=== PATIENT | male | born 1985 | race Caucasian/White ===

== ENCOUNTER 2020-09-07 07:13 | Outpatient (REF) | payer OTHER, SELFPAY ==
--- NOTE | ~2020-09-07 | MR_ITS ---
EXAMINATION: MR SHOULDER WITHOUT CONTRAST, RIGHT CLINICAL INFORMATION: Right shoulder pain COMPARISON: None TECHNIQUE: MRI of the shoulder without contrast was performed on a high-field scanner. FINDINGS: ROTATOR CUFF: Intact. No muscle atrophy or fatty infiltration. BICEPS: Normal. CORACOACROMIAL ARCH: The undersurface of the acromion is curved with no subacromial spur. Mild acromioclavicular osteoarthritis. LABRUM/CAPSULE: No definite labral tear. GLENOHUMERAL JOINT/MARROW: Small degenerative cyst of the anterior superior glenoid and mild osteophyte formation along the posterior superior glenoid rim. No joint effusion. MR/MR shoulder RT wo con IMPRESSION: No rotator cuff tear. Mild glenohumeral and acromioclavicular osteoarthritis. No joint effusion.
== END 2020-09-07 07:14 | disposition home or self-care (01) ==
LOC: HO.MRI 07:13
PROVIDERS: PCP Nurse Practitioner Family; Visit Provider Nurse Practitioner Family
DX: M25.511 Pain in right shoulder (principal)
CPT/HCPCS: 73221

== ENCOUNTER 2020-10-05 09:11 | Outpatient (REF) | payer OTHER, SELFPAY ==
--- NOTE | ~2020-10-05 | XR_ITS ---
EXAMINATION: XR KNEE, LEFT CLINICAL INFORMATION: Injury COMPARISON: None TECHNIQUE: Four views of the left knee. FINDINGS: Bone alignment is normal. No fracture or dislocation is seen. The joint spaces are normal. There may be a joint effusion. XR/XR knee LT 4V IMPRESSION: Question joint effusion otherwise unremarkable exam.
== END 2020-10-05 09:12 | disposition home or self-care (01) ==
LOC: HO.HMGCX 09:11
PROVIDERS: PCP Nurse Practitioner Family; Visit Provider Nurse Practitioner Family
DX: S89.92XA Unspecified injury of left lower leg, initial encounter (principal)
CPT/HCPCS: 73564

== ENCOUNTER 2020-10-18 08:31 | Outpatient (REF) | payer OTHER, SELFPAY ==
--- NOTE | ~2020-10-18 | XR_ITS ---
EXAMINATION: XR LUMBOSACRAL SPINE CLINICAL INFORMATION: Pain COMPARISON: None TECHNIQUE: Three views of the lumbosacral spine. FINDINGS: Bone alignment is normal. No fracture or dislocation is seen. There is a convex margin of the superior endplate of the L4 vertebral body appreciated appreciated on the lateral view probably representing a small Schmorl's node. Disc spaces are otherwise normal. May be mild lower lumbar spine facet arthritis. Paraspinal soft tissues are normal. XR/XR lumbar spine 2-3V IMPRESSION: Probable small Schmorl's node of the superior endplate of the L4 vertebral body. Question mild lower lumbar spine facet arthritis.
== END 2020-10-18 08:32 | disposition home or self-care (01) ==
LOC: HO.HMGCX 08:31
PROVIDERS: PCP Nurse Practitioner Family; Visit Provider Nurse Practitioner Family
DX: M54.5 Low back pain (principal); G89.29 Other chronic pain
CPT/HCPCS: 72100

== ENCOUNTER → 2020-11-17 09:56 | Outpatient (BNVA) | payer OTHER, SELFPAY | PROVIDERS: PCP Nurse Practitioner Family; Visit Provider Hospitalist | DX: G47.33 Obstructive sleep apnea (adult) (pediatric) (principal); J45.40 Moderate persistent asthma, uncomplicated; F51.01 Primary insomnia | CPT/HCPCS: 99202 ==

== ENCOUNTER → 2020-12-01 14:54 | Outpatient (REF) | payer OTHER, SELFPAY | LOC: HO.SL 14:54 | PROVIDERS: PCP Nurse Practitioner Family; Visit Provider Hospitalist | DX: G47.33 Obstructive sleep apnea (adult) (pediatric) (principal); G47.10 Hypersomnia, unspecified | CPT/HCPCS: 95806 ==

== ENCOUNTER → 2021-01-16 09:59 | Outpatient (BNVA) | payer OTHER, SELFPAY | PROVIDERS: PCP Nurse Practitioner Family; Visit Provider Hospitalist | DX: G47.33 Obstructive sleep apnea (adult) (pediatric) (principal); J45.40 Moderate persistent asthma, uncomplicated; F51.01 Primary insomnia | CPT/HCPCS: 99212 ==

== ENCOUNTER 2021-07-31 13:03 | Outpatient (REF) | payer OTHER, SELFPAY ==
[2021-07-31 14:31] LABS: Alanine Aminotransferase 31 U/L (0-40); Albumin Level 4.5 g/dL (3.5-5.0); Alkaline Phosphatase 82 U/L (39-117); Anion Gap 12 (12-20); Aspartate Amino Transferase 18 U/L (5-37); Bilirubin Total 0.7 mg/dL (0.0-1.0); Blood Urea Nitrogen 12 mg/dL (9-16); Calcium 9.7 mg/dL (8.4-10.2); Carbon Dioxide 28 mmol/L (22-29); Chloride 104 mmol/L (96-108); Cholesterol 212 mg/dL; Estimated Glomerular Filt Rate > 60; Glucose Fasting 84 mg/dL (60-99); HDL Cholesterol 41 mg/dL; LDL Cholesterol Calculated 127 mg/dl; Potassium 4.2 mmol/L (3.3-5.1); Sodium 140 mmol/L (135-145); Total Protein 7.5 g/dL (6.5-8.0); Triglycerides 222 mg/dL
[2021-07-31 14:50] LABS: TSH reflex Free T4 1.48 uIU/mL (0.32-4.0)
[2021-08-04 15:51] LABS: Testosterone, Free 83.3 pg/mL (35.0-155.0); Testosterone, Total 350 ng/dL (250-1100)
== END 2021-07-31 13:04 | disposition home or self-care (01) ==
LOC: HO.HMGCLDS 13:03
PROVIDERS: Visit Provider Nurse Practitioner Family
DX: Z00.00 Encounter for general adult medical examination without abnormal findings (principal); N52.1 Erectile dysfunction due to diseases classified elsewhere
CPT/HCPCS: 36415; 80053; 80061; 84402; 84403; 84443

== ENCOUNTER 2021-09-25 13:52 | Outpatient (REF) | payer OTHER, SELFPAY ==
--- NOTE | ~2021-09-25 | XR_ITS ---
EXAMINATION: XR FOOT, RIGHT XR FOOT, LEFT CLINICAL INFORMATION: Bilateral foot pain. COMPARISON: None TECHNIQUE: 3 views of each foot. FINDINGS: LEFT FOOT: 3 views of the left foot do not demonstrate any evidence of acute fracture or dislocation. There is minimal sclerosis and spurring about the talonavicular joint. Remainder of joint spaces are maintained. There are minimal plantar and Achilles calcaneal spurs present. No significant soft tissue swelling seen. RIGHT FOOT: 3 views of the right foot do not demonstrate any evidence of acute fracture or dislocation. There is a prominent plantar calcaneal spur present. There is some mild sclerosis about the talonavicular joint. A metallic tack is seen about the medial aspect of the navicula. XR/XR foot RT 2V IMPRESSION: No evidence of acute fracture or dislocation of the right or left foot. Previous surgery with tack placement about the right medial navicular region. Mild degenerative change of the tarsonavicular joints bilaterally.
--- NOTE | ~2021-09-25 | XR_ITS ---
EXAMINATION: XR FOOT, RIGHT XR FOOT, LEFT CLINICAL INFORMATION: Bilateral foot pain. COMPARISON: None TECHNIQUE: 3 views of each foot. FINDINGS: LEFT FOOT: 3 views of the left foot do not demonstrate any evidence of acute fracture or dislocation. There is minimal sclerosis and spurring about the talonavicular joint. Remainder of joint spaces are maintained. There are minimal plantar and Achilles calcaneal spurs present. No significant soft tissue swelling seen. RIGHT FOOT: 3 views of the right foot do not demonstrate any evidence of acute fracture or dislocation. There is a prominent plantar calcaneal spur present. There is some mild sclerosis about the talonavicular joint. A metallic tack is seen about the medial aspect of the navicula. XR/XR foot LT 2V IMPRESSION: No evidence of acute fracture or dislocation of the right or left foot. Previous surgery with tack placement about the right medial navicular region. Mild degenerative change of the tarsonavicular joints bilaterally.
--- NOTE | ~2021-09-25 | US_ITS ---
EXAMINATION: US SCROTUM CLINICAL INFORMATION: Testicle swelling. COMPARISON: None TECHNIQUE: A sonogram of the scrotum was performed assessing reyes-scale appearance and color Doppler flow. Spectral Doppler analysis of the arterial and venous flow were performed in the testes bilaterally. FINDINGS: RIGHT: Right testicle measures 4.4 x 2.7 x 3.2 cm, volume 19.7 mL. No focal testicular parenchymal lesions are visualized. Spectral Doppler analysis of the arterial and venous flow is increased in the right testis. Right epididymal head is heterogeneous and enlarged. There is a complex right hydrocele with echogenic debris. No right varicocele is seen. Right epididymal Doppler flow is increased. LEFT: Left testicle measures 5.1 x 2.4 x 2.9 cm, volume 18.3 mL. No focal testicular parenchymal lesions are visualized. Spectral Doppler analysis of the arterial and venous flow is increased in the left testis. Left epididymal head is normal. There are echogenic areas in the left epididymal tail with swirling debris, question spermatocele. Moderate left hydrocele is present. Left epididymal Doppler flow is increased. US/US scrotum IMPRESSION: Bilateral moderate hydrocele with echogenic debris in the right hydrocele. Suspect left epididymal spermatocele in the tail region. Otherwise, the epidural head and testes are unremarkable with normal flow.
== END 2021-09-25 13:53 | disposition home or self-care (01) ==
LOC: HO.HMGCX 13:52
PROVIDERS: PCP Nurse Practitioner Family; Visit Provider Nurse Practitioner Family
DX: N50.89 Other specified disorders of the male genital organs (principal); M79.671 Pain in right foot; M79.672 Pain in left foot
CPT/HCPCS: 73620; 76870

== ENCOUNTER → 2022-01-10 11:53 | Outpatient (BNVA) | payer OTHER, SELFPAY | PROVIDERS: PCP Nurse Practitioner Family; Visit Provider Urology | DX: N43.3 Hydrocele, unspecified (principal) | CPT/HCPCS: 55000; 99202 ==

== ENCOUNTER 2022-01-25 14:14 | Outpatient (REF) | payer OTHER, SELFPAY ==
[2022-01-25 16:25] LABS: MANUAL DIFF FLAG NO
[2022-01-25 16:29] LABS: Basophils Percent Auto 0.5 % (0-2); Eosinophils Absolute Auto 0.2 X10*3/uL (0.0-0.4); Eosinophils Percent Auto 2.2 % (0-4); Hematocrit 46.1 % (42.0-52.0); Hemoglobin 15.9 g/dl (14.0-18.0); Imm Gran Abs Auto 0.03 X10*3/uL (0.00-0.03); Imm Gran Pct Auto 0.4 % (0.0-0.4); Lymphocytes Absolute Auto 2.3 X10*3/uL (1.2-4.9); Lymphocytes Percent Auto 29.2 % (20-40); Mean Corpuscular HGB Conc 34.5 g/dl (31.0-36.0); Mean Corpuscular Hemoglobin 30.2 pg (27.0-33.0); Mean Corpuscular Volume 87.6 fL (80.0-98.0); Monocytes Absolute Auto 0.7 X10*3/uL (0.1-1.2); Monocytes Percent Auto 9.1 % (2-11); Neutrophils Absolute Auto 4.6 x10*3/uL (2.0-8.3); Neutrophils Percent Auto 58.6 % (45-73); Platelet Count 321 X10*3/uL (160-400); Red Blood Count 5.26 X10*6/uL (4.60-5.80); Red Cell Distribution Width 12.6 % (11.0-16.0); White Blood Count 7.8 X10*3/uL (4.8-10.8)
[2022-01-25 16:37] LABS: Partial Thromboplastin Time 33.2 SEC (26.0-36.4)
[2022-01-25 16:39] LABS: Alanine Aminotransferase 64 U/L (0-40); Albumin Level 4.7 g/dL (3.5-5.0); Alkaline Phosphatase 87 U/L (39-117); Anion Gap 17 (12-20); Aspartate Amino Transferase 28 U/L (5-37); Bilirubin Total 0.5 mg/dL (0.0-1.0); Blood Urea Nitrogen 12 mg/dL (9-16); Calcium 9.8 mg/dL (8.4-10.2); Carbon Dioxide 27 mmol/L (22-29); Chloride 101 mmol/L (96-108); Estimated Glomerular Filt Rate > 60; Glucose Random 82 mg/dL (60-115); Potassium 4.5 mmol/L (3.3-5.1); Sodium 140 mmol/L (135-145); Total Protein 7.9 g/dL (6.5-8.0)
== END 2022-01-25 14:15 | disposition home or self-care (01) ==
LOC: HO.HMGCLDS 14:14
PROVIDERS: PCP Nurse Practitioner Family; Visit Provider Nurse Practitioner Family
DX: Z01.818 Encounter for other preprocedural examination (principal)
CPT/HCPCS: 36415; 80053; 84443; 85025; 85610; 85730

== ENCOUNTER 2022-01-29 11:58 | Day surgery (SDC) | payer OTHER, SELFPAY ==
[2022-01-23 15:04] VITALS: BMI 27.3
[2022-01-29] VITALS (7 sets, daily range): BP systolic 109–136; BP diastolic 61–84; PULSE 63–87; RESP 12–18; TEMP 36.3–37.1; O2SAT 95–97; BMI 27.3
[2022-01-29] MEDS: Lactated Ringers 1,000 ML 50 ML IVCONT (12:48)
--- NOTE | 2022-01-29 13:00 | HO.ANESPROP2 ---
[facility] Active Problems Active Problems: All Active Problems (Updated 01/25/22 @ 16:43 by JAN Bernstein) Elevated liver enzymes (Acute) Pre-op evaluation (Acute) Physical exam (Acute) Right shoulder pain (Acute) Erectile disorder due to medical condition in male (Acute) Sleep apnea (Acute) Knee injury (Acute) Hamstring injury (Acute) Knee effusion, left (Acute) Chronic lower back pain (Acute) Dyslipidemia (Acute) Foot pain, bilateral (Acute) Swollen testicle (Acute) Migraine (Acute) Allergies (Acute) Hydrocele in adult (Acute) Insomnia (Acute) Asthma (Acute) SB (obstructive sleep apnea) (Acute) Hypersomnia (Acute) Osteoarthritis of right shoulder (Acute) Past Medical History Medical History (Updated 01/25/22 @ 16:43 by JAN Bernstein) Arthritis of shoulder region, left, degenerative Asthma DDD (degenerative disc disease), lumbar History of seizure History of traumatic brain injury Hypersomnia Insomnia SB (obstructive sleep apnea) Osteoarthritis of right shoulder PTSD (post-traumatic stress disorder) Family History Family History Other Asthma Family history of problems with anesthesia: No Surgical History Surgical History History of shoulder surgery Hx of eye surgery Hx of vasectomy History of Problems with Anesthesia: No Social History Social History Household Members: Spouse Patient Tobacco Use Status: Current everyday Tobacco user Tobacco use type: Cigarette Cigarettes Per Day: 2 e-Cigarette/Vaping Use: Never Used Second Hand Smoke Exposure: No Use of substances other than those prescribed or required for medical reasons: No Have you been hit, kicked, punched, or otherwise hurt by someone within the past year? If so, by whom?: No Are you DNR?: No Advance Directives: No Advance Directives Information Provided: Yes Advance Directives on File: No Recently lost weight without trying: No Nutrition Risks: No Nutritional Risk service: Yes Current occupational status: employed Current occupation: [employer] Current occupational exposures/hazards: Yes Cognitive needs: No Hearing needs: No Vision needs: No Meds Allergies Allergy/AdvReac Type Severity Reaction Status Date / Time shellfish derived Allergy Severe Anaphylaxis Verified 01/25/22 17:49 Active Medications: Current Medications Lactated Ringer's (Lr) 1,000 mls @ 50 mls/hr IVCONT .Q20H SUZI Last Admin: 01/29/22 12:48 Dose: 50 mls/hr Home Medications Medication Instructions Recorded Confirmed Last Taken Type Epi E-Z Pen 01/23/22 01/25/22 Unknown History Exam Exam Date and Time: January 29, 2022 1300 Height,Weight and Vital Signs: Height 6 ft 4 in Weight 102.058 kg Last Vital Signs Temp 97.4 F 01/29/22 12:31 Pulse 76 01/29/22 12:31 Resp 18 01/29/22 12:31 BP 128/84 01/29/22 12:31 Pulse Ox 96 01/29/22 12:31 O2 Del Method 01/29/22 12:31 Airway Mallampati Class: II (Cap lower left) TM Dist: >3cm Neck ROM: Full Heart: rrr Lungs: cta Assessment and Plan Assessment Anesthesia Assessment: Anesthesia Plan Discussed and Chart Reviewed Final Anesthetic Review Family History of Problems with Anesthesia: No History of Problems with Anesthesia: No NPO: No ASA Class: III Final Preanesthetic Review: No Changes in Pt Med Stat, Meds/Allgs Chart Reviewed and Consent Obtained/Reviewed Patient Risk: Intermediate Procedure Risk: Intermediate Anesthetic Plan Anesthetic Plan: GA Disposition: Standard PACU
--- NOTE | 2022-01-29 14:36 | MHC.SHP ---
Pre-Procedural Eval Section A Date of Service: 01/29/22 The patient is an INPATIENT: No Changes since office visit: No Cold of Flu in the past 2 weeks, No New Medical Problems, No Changes in Medication and No Patient answered all questions The History & Physical has been completed within 30 days and I have reviewed it.: Yes Section B Chief Complaint: Hydrocele, Details of Present Illness: right hydrocelectomy Allergies: Allergies Allergy/AdvReac Type Severity Reaction Status Date / Time shellfish derived Allergy Severe Anaphylaxis Verified 01/25/22 17:49 Plan I have reviewed the history and physical and performed a pertinent physical examination on my patient. No changes have occurred unless specified.
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
== END 2022-01-29 17:15 | disposition home or self-care (01) ==
PROVIDERS: PCP Nurse Practitioner Family; Visit Provider Urology
PROC: (CPT 55060; principal; 2022-01-29 14:30)
DX: N43.3 Hydrocele, unspecified (principal); J45.909 Unspecified asthma, uncomplicated; G47.10 Hypersomnia, unspecified; G47.00 Insomnia, unspecified; G47.33 Obstructive sleep apnea (adult) (pediatric); Z79.899 Other long term (current) drug therapy; Z99.89 Dependence on other enabling machines and devices; F17.210 Nicotine dependence, cigarettes, uncomplicated; Z98.52 Vasectomy status
CPT/HCPCS: 55040; 88302; J0690; J1885; J2250; J2795; J3010

== ENCOUNTER 2022-03-01 10:54 | Outpatient (REF) | payer OTHER, SELFPAY ==
--- NOTE | ~2022-03-01 | US_ITS ---
EXAMINATION: US ABDOMEN COMPLETE CLINICAL INFORMATION: Abnormal levels of other serum enzymes. COMPARISON: None TECHNIQUE: Real-time imaging of the abdominal viscera. FINDINGS: PANCREAS: Normal. ABDOMINAL AORTA: The proximal, mid, and distal segments are normal in caliber. INFERIOR VENA CAVA: Visualized portions are normal. LIVER: Liver echotexture is increased. The liver is normal in contour. The liver is slightly enlarged. No focal liver lesion or biliary duct dilatation. GALLBLADDER: Normal. The gallbladder is physiologically distended without evidence of stones, sludge, polyps, wall thickening or pericholecystic fluid. COMMON BILE DUCT: Normal in caliber measuring 0.4 cm in diameter. RIGHT KIDNEY: Normal. No hydronephrosis. No renal calculi or focal parenchymal lesions. The kidney measures 13.8 cm in maximum dimension. LEFT KIDNEY: Normal. No hydronephrosis. No renal calculi or focal parenchymal lesions. The kidney measures 13.4 cm in maximum dimension. SPLEEN: Normal. The spleen measures 12.6 cm in maximum dimension. FREE FLUID: None. US/US abdomen complete IMPRESSION: Echogenic liver.
== END 2022-03-01 10:55 | disposition home or self-care (01) ==
LOC: HO.HMGCX 10:54
PROVIDERS: PCP Nurse Practitioner Family; Visit Provider Nurse Practitioner Family
DX: R74.8 Abnormal levels of other serum enzymes (principal)
CPT/HCPCS: 76700

== ENCOUNTER 2023-04-10 08:03 | Outpatient (AMB) | payer OTHER, SELFPAY ==
[2023-04-10 08:06] VITALS: BP 122/80; PULSE 74; TEMP 37.1; O2SAT 97; BMI 27.8
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
== END 2023-04-10 08:59 | disposition home or self-care (01) ==
PROVIDERS: PCP Nurse Practitioner Family; Visit Provider Internal Medicine
DX: S10.93XA Contusion of unspecified part of neck, initial encounter (principal)
CPT/HCPCS: 99214

== ENCOUNTER 2023-04-10 08:22 | Outpatient (REF) | payer OTHER, SELFPAY ==
--- NOTE | ~2023-04-10 | XR_ITS ---
EXAMINATION: XR CERVICAL SPINE CLINICAL INFORMATION: Contusion COMPARISON: None available. TECHNIQUE: 4 views of the cervical spine FINDINGS: The bony texture and alignment of the cervical spine is unremarkable with the head being tilted to the left on AP view. No abnormal prevertebral soft tissue swelling. Disc spaces are maintained. No acute fracture is appreciated. XR/XR cervical spine 3V IMPRESSION: No significant bony abnormality of the cervical spine identified.
== END 2023-04-10 08:23 | disposition home or self-care (01) ==
LOC: HO.HMGCX 08:22
PROVIDERS: Visit Provider Internal Medicine
DX: S10.93XA Contusion of unspecified part of neck, initial encounter (principal); X58.XXXA Exposure to other specified factors, initial encounter; Y93.9 Activity, unspecified; Y92.9 Unspecified place or not applicable; Y99.9 Unspecified external cause status
CPT/HCPCS: 72040

== ENCOUNTER 2023-08-15 09:52 | Outpatient (AMB) | payer OTHER, SELFPAY ==
[2023-08-15 09:56] VITALS: BP 126/88; PULSE 74; O2SAT 98; BMI 28.3
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
== END 2023-08-15 11:59 | disposition home or self-care (01) ==
PROVIDERS: PCP Nurse Practitioner Family; Visit Provider Nurse Practitioner Family
DX: M54.81 Occipital neuralgia (principal); M54.2 Cervicalgia; Z87.898 Personal history of other specified conditions; G51.4 Facial myokymia; R20.2 Paresthesia of skin; R51.9 Headache, unspecified
CPT/HCPCS: 99204

== ENCOUNTER → 2023-08-15 09:52 | Outpatient (BNVA) | payer OTHER, SELFPAY | PROVIDERS: PCP Nurse Practitioner Family; Visit Provider Nurse Practitioner Family | DX: M54.81 Occipital neuralgia (principal); M54.2 Cervicalgia; G51.4 Facial myokymia; R20.2 Paresthesia of skin; R51.9 Headache, unspecified; Z87.898 Personal history of other specified conditions | CPT/HCPCS: 99202 ==

== ENCOUNTER 2023-09-02 11:00 | Outpatient (RCR) | payer OTHER, SELFPAY ==
--- NOTE | 2023-06-12 13:56 | MHC.PT.EP ---
[facility] [place] Office [place] Office [place] Office [address] Nathen Sandhu [address] [phone] F: [phone] F: [phone] F: [phone] F: [phone] Physical Therapy Plan of Care Date of Evaluation: 06/12/23 Date of Surgery: Diagnosis: contusion of neck Assessment: Patient is a 38 year old R handed male who presents with s/s consistent with cervical pain, contusion of neck. He works with daily job demands including active for 19 years. Patient past medical history includes shoulder surgery. Current impairments include pain, posture, ROM, strength, tissue tension, activity tolerance and functional mobility. Functional limitations include decreased ability to turn head, drive, sleep, lift, carry, push, pull and perform extracurricular activities. Patient is motivated with good rehab potential. Skilled PT will address impairments and functional limitations in order to achieve goals. Frequency and Duration: The patient will be seen 2x/week for 5 weeks Short Term Goals: I with HEP - 2 weeks Improved sleep quality, max pain at night 07/13 - 3 weeks AROM rotation 50 b/l - 3 weeks Shelter Goals: AROM rotation 60 b/l - 5 weeks NPDI 20% or better - 5 weeks KUMAR absent for 2 weeks - 5 weeks Tissue tension absent - 5 weeks LS/UT TrP absent - 5 weeks Treatment Plan: Modalities to reduce pain, spasms and effusion. Manual therapy to restore motion and function. Therapeutic exercise to improve strength and flexibility. Neuromuscular re-education for posture and balance. Therapeutic activities to return to functional activities of daily living. Electronically signed by: Portillo Barnes, PT Please sign and return to therapist. Thank you for your referral.
--- NOTE | 2024-02-11 10:34 | MHC.PT.DC ---
[facility] [place] Office [place] Office [place] Office [address] [place] [address] Dr Nathen Sandhu [address] [phone] F: [phone] F: [phone] F: [phone] F: [phone] Physical Therapy Discharge Report Diagnosis: contusion of neck Date of Surgery: Date of Evaluation: 06/12/23 Date of Discharge: 10/14/23 Treatments to Date: 12 Cancellations to Date: 1 No Shows to Date: 3 Discharge Status: Independent with HEP Discharge Summary: 09/02/23: I with HEP. Improved sleep, reduced KUMAR and pain with daily activities. AROM goals met to L, 2 degrees away to R. Tissue tension significantly decreased. NPDI 28%. Pt compliant throughout and progressed well with skilled PT. He has HEP and will continue with this. He is appropriate to d/c to HEP at this time. 08/27; Pt gets relief from manual RX. Pt sebastián pain management. Pt conts with decreased c/s rot, KUMAR, pain ,stiffness and reduced c/s lordosis. 08/20; Pt felt looser after RX and had 10 degrees increased L c/s rot. Pt had no increase in pain after CTX. Discussed home TX unit for maintence if beneficial. 08/13;Pt fels ST relaxesd. Pt blocked C3,[address]X. 08/12/23: reduced tissue tension. ROM goals met. discussed plan, HEP, posture, pathology and half-way management with pt. we will continue 4 more weeks at 2x/week then transition to HEP. 08/06; Pt gets relief after RX. Pt rotation progressing. ; Pt L rot 55, R rot 60 after SNAG and mobs/ Pt hypomobile L C3,4. 07/24; Pt had reduced c/o stiffness, tightness and improved flexion. 07/17; Pt had reduced c/o pain and stiffness after RX. Pt mobility progressing. C3,4 hypomobile and L rotaed. Pt with significantly decreased cervical lordosis and noted muscle spasm L SCM. He tolerated all exercises well wit no increase in pain and updated HEP. Reviewed attendnace policy Electronically signed by: Portillo Barnes, PT Please sign and return to therapist. Thank you for your referral.
== END 2024-02-11 10:35 | disposition home or self-care (01) ==
LOC: HO.PTCHIC 11:00
PROVIDERS: PCP Nurse Practitioner Family; Visit Provider Internal Medicine
DX: S10.93XA Contusion of unspecified part of neck, initial encounter (principal)
CPT/HCPCS: 97110; 97140; 97161

== ENCOUNTER 2023-09-06 08:55 | Outpatient (AMB) | payer OTHER, SELFPAY ==
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
[2023-09-06 09:05] VITALS: BP 134/74; PULSE 72; O2SAT 100; BMI 28.6
== END 2023-09-06 09:37 | disposition home or self-care (01) ==
PROVIDERS: PCP Nurse Practitioner Family; Visit Provider Nurse Practitioner Family
DX: M54.81 Occipital neuralgia (principal); M47.812 Spondylosis without myelopathy or radiculopathy, cervical region; G43.909 Migraine, unspecified, not intractable, without status migrainosus; M62.838 Other muscle spasm
CPT/HCPCS: 99204

== ENCOUNTER 2023-09-06 08:55 | Outpatient (REF) | payer OTHER, SELFPAY ==
--- NOTE | ~2023-09-06 | XR_ITS ---
EXAMINATION: XR CERVICAL SPINE XR LUMBAR SPINE CLINICAL INFORMATION: Pain in spine of neck and lower spine. COMPARISON: Cervical spine 04/10/2023. Lumbar spine 10/18/2020. TECHNIQUE: 8 views of the cervical spine. 5 views of the lumbar spine. FINDINGS: Straightening of the normal cervical lordosis. Mild multilevel cervical spondylosis with slight loss of disc space height at C4-C5 and C5-C6. Alignment preserved on flexion and extension views. Lumbar spine: Mild rightward curvature of the lumbar spine. Degenerative changes in the imaged lower thoracic spine. Straightening of the normal lumbar lordosis on the lateral view. Redemonstration of a superior endplate concavity at the L4 vertebral bodies characteristic of a Schmorl's node. Facet arthritis in the lower lumbar spine. Mild multilevel lumbar spondylosis with mild loss of disc space height at L3-L4, L4-L5 and L5-S1. XR/XR lumbar spine 4V min IMPRESSION: 1. Mild multilevel cervical spondylosis. 2. Mild multilevel lumbar spondylosis.
--- NOTE | ~2023-09-06 | XR_ITS ---
EXAMINATION: XR CERVICAL SPINE XR LUMBAR SPINE CLINICAL INFORMATION: Pain in spine of neck and lower spine. COMPARISON: Cervical spine 04/10/2023. Lumbar spine 10/18/2020. TECHNIQUE: 8 views of the cervical spine. 5 views of the lumbar spine. FINDINGS: Straightening of the normal cervical lordosis. Mild multilevel cervical spondylosis with slight loss of disc space height at C4-C5 and C5-C6. Alignment preserved on flexion and extension views. Lumbar spine: Mild rightward curvature of the lumbar spine. Degenerative changes in the imaged lower thoracic spine. Straightening of the normal lumbar lordosis on the lateral view. Redemonstration of a superior endplate concavity at the L4 vertebral bodies characteristic of a Schmorl's node. Facet arthritis in the lower lumbar spine. Mild multilevel lumbar spondylosis with mild loss of disc space height at L3-L4, L4-L5 and L5-S1. XR/XR cervical spine w flex/ext IMPRESSION: 1. Mild multilevel cervical spondylosis. 2. Mild multilevel lumbar spondylosis.
== END 2023-09-06 08:56 | disposition home or self-care (01) ==
LOC: HO.XRAY 08:55
PROVIDERS: Absent Provider Nurse Practitioner Family; PCP Nurse Practitioner Family; Visit Provider Nurse Practitioner Family
DX: M54.81 Occipital neuralgia (principal); G43.909 Migraine, unspecified, not intractable, without status migrainosus; M62.838 Other muscle spasm; M47.812 Spondylosis without myelopathy or radiculopathy, cervical region; Z87.828 Personal history of other (healed) physical injury and trauma
CPT/HCPCS: 72052; 72110; 99202

== ENCOUNTER 2023-09-24 07:56 | Outpatient (REF) | payer OTHER, SELFPAY ==
--- NOTE | 2023-09-24 08:00 | EEG_ITS ---
FINDINGS: Waking background activity consists of a well-defined moderate voltage 10 hertz posterior alpha frequency intermixed anteriorly with low voltage fast frequencies. Photic stimulation and hyperventilation are without activation. No sleep stages are identified. IMPRESSION: This waking EEG is within normal limits MD BRIDGER Ovalle/MOISES / [id number]
== END 2023-09-24 07:57 | disposition home or self-care (01) ==
LOC: HO.NEURO 07:56
PROVIDERS: PCP Nurse Practitioner Family; Visit Provider Nurse Practitioner Family
DX: G51.4 Facial myokymia (principal); Z87.898 Personal history of other specified conditions; Z82.0 Family history of epilepsy and other diseases of the nervous system
CPT/HCPCS: 95816

== ENCOUNTER 2023-09-25 09:47 | Outpatient (AMB) | payer OTHER, SELFPAY ==
--- NOTE | 2023-09-25 10:01 | A.OFFVIS_ITS ---
Vital Signs 09/25/23 10:02 Height 6 ft 5 in Weight 238 lb BMI 28.2 BP 126/76 Blood Pressure Location Lt brachial Position Sitting Respiration 14 Pulse 66 Pulse Source Pulse Oximeter Pulse Oximetry (%) 97 Oxygen Delivery Method Room Air Intake Visit Reasons: BILATERAL OCCIPITAL NERVE BLOCKS Allergies shellfish derived Allergy (Severe, Verified 09/25/23 10:05) Anaphylaxis Medication List - Last Reconciled 09/25/23 by Janell Salinas LPN albuterol sulfate 90 mcg/actuation 2 inhalations inhalation Q6H PRN 30 days cyclobenzaprine 10 mg PO Q8H dextroamphetamine-amphetamine 10 mg (Adderall) 10 mg PO BID 14 days dextroamphetamine-amphetamine 20 mg (Adderall) 20 mg PO DAILY 14 days [Epi E-Z Pen ] gabapentin 300 mg PO BEDTIME 30 days magnesium oxide 400 mg PO BEDTIME 30 days meloxicam 15 mg PO DAILY riboflavin (vitamin B2) 400 mg PO DAILY 30 days sumatriptan succinate 50 - 100 mg orally at onset of headache, may repeat in 2 hrs PRN; max 2 tabs per day or 4 tabs/week (may take with Ibuprofen) 30 days topiramate 25 - 50 mg (1 - 2 x 25 mg) PO BEDTIME 30 days HPI HPI BILATERAL OCCIPITAL NERVE BLOCKS: Details: Patient presents for scheduled procedure. Denies any recent cough, cold, infection, fever or other significant changes in medical history since last office visit. [facility] Medical History (Updated 09/06/23 @ 20:46 by DELROY Fernandes) Migraine History of traumatic brain injury DDD (degenerative disc disease), lumbar History of seizure PTSD (post-traumatic stress disorder) Arthritis of shoulder region, left, degenerative Insomnia Asthma SB (obstructive sleep apnea) Hypersomnia Osteoarthritis of right shoulder Surgical History Hx of vasectomy Hx of eye surgery History of shoulder surgery Family History Other Asthma Social History Household Members: Spouse Patient Tobacco Use Status: Current everyday Tobacco user Tobacco use type: Cigarette Cigarettes Per Day: 2 e-Cigarette/Vaping Use: Never Used Second Hand Smoke Exposure: No service: Yes Current occupational status: employed Current occupation: [employer] Current occupational exposures/hazards: Yes Cognitive needs: No Hearing needs: No Vision needs: No Physical Exam Vital Signs: Last Vital Signs Pulse 66 09/25/23 10:02 Resp 14 09/25/23 10:02 BP 126/76 09/25/23 10:02 Pulse Ox 97 09/25/23 10:02 Oxygen Delivery Method Room Air 09/25/23 10:02 BMI result Body Mass Index 28.2 Office Procedures Nerve Block Details: Greater and Lesser Occipital Nerve Block, Bilateral Physical exam was used to isolate the location of the targeted nerves. These injection sites were prepped with alcohol. Using sterile technique, a 30 gauge 1.5 inch needle was introduced into each each overlying nerve. A total of 3 mL 0.5% ropivacaine was injected around the right greater and lesser occipital nerves in a fan-like motion. This was then repeated on the left side. Aspirations were negative for blood, CSF and air prior to injection at all sites. The needle was removed, skin cleansed and a sterile bandage was applied where needed. The patient tolerated the procedure well and no complications were encountered. Following the procedure the patient's vital signs were stable. The patient was discharged home in good condition with post-procedural instructions. Time Out: Immediately prior to the procedure, the following was verbally confirmed that there is a signed consent form and that the correct patient, planned procedure, site and side are consistent with documentation and that necessary equipment and/or blood products are available prior to the start of the case. Complications: none EBL: <5 cc CPT: 80515-[id number] Occipital (Bilateral) Procedure code (CPT) selection complete Assessment & Plan Assessment & Plan (1) Occipital neuralgia: Code(s): M54.81 - Occipital neuralgia Category: Medical Plan Patient is status post bilateral lesser and greater occipital nerve blocks using landmark guidance. Patient tolerated procedure well and was discharged home in stable condition with discharge instructions. All questions were answered. We will follow-up via telephone or in clinic to assess response to therapy. A follow-up appointment was made during today's visit. Coding Level of Care Code Procedure Only Diagnoses Occipital neuralgia M54.81 CPT Codes Nerve Block - CPT: 60346-[id number] Occipital ([id number])
[2023-09-25 10:02] VITALS: BP 126/76; PULSE 66; RESP 14; O2SAT 97; BMI 28.2
== END 2023-09-25 10:46 | disposition home or self-care (01) ==
PROVIDERS: PCP Nurse Practitioner Family; Visit Provider Internal Medicine
DX: M54.81 Occipital neuralgia (principal)
CPT/HCPCS: 64405; 64450

== ENCOUNTER → 2023-09-25 09:47 | Outpatient (BNVA) | payer OTHER, SELFPAY | PROVIDERS: PCP Nurse Practitioner Family; Visit Provider Internal Medicine | DX: M54.81 Occipital neuralgia (principal) | CPT/HCPCS: 64405; 64450; J2795 ==

== ENCOUNTER 2023-09-25 15:24 | Outpatient (REF) | payer OTHER, SELFPAY ==
--- NOTE | 2023-09-25 15:29 | EMG_ITS ---
Chief complaint: Tingling/numbness on fingertips, occasionally left foot Denies weakness. No atrophy. Has noted muscle twitching on face and arms. Neck pain. Low back pain. Isolated seizure 8 years ago. History of past TBI. Active [employer]. Reason for referral: Evaluate for motor neuron disorder, evaluate neuropathy Referred by: Sulma Woodward NP Procedure done: Bilateral upper extremities and bilateral lower extremity NCS/EMG Precautions and/or limitations: None The limb temperature was monitored continuously and remained between 32-36 degrees C during the performance of the NCS. Nerve Conduction Studies Anti Sensory Summary Table ?Stim Site NR Onset (ms) Norm Onset (ms) Peak (ms) Norm Peak (ms) O-P Amp (?V) Norm O-P Amp Site1 Site2 Delta-0 (ms) Dist (cm) Austin (m/s) Norm Austin (m/s) Left Median Anti Sensory (2nd Digit) Wrist ? 2.3 2.9 <3.6 47.4 >10 Wrist 2nd Digit 2.3 14.0 61 Right Median Anti Sensory (2nd Digit) Wrist ? 2.3 3.0 <3.6 43.5 >10 Wrist 2nd Digit 2.3 14.0 61 Left Sural Anti Sensory (Lat Mall) Calf ? 2.8 3.3 <4.0 12.6 >5.0 Calf Lat Mall 2.8 14.0 50 Right Sural Anti Sensory (Lat Mall) Calf ? 2.8 3.3 <4.0 8.9 >5.0 Calf Lat Mall 2.8 14.0 50 Left Ulnar Anti Sensory (5th Digit) Wrist ? 2.4 3.0 <3.7 31.9 >15.0 Wrist 5th Digit 2.4 14.0 58 Right Ulnar Anti Sensory (5th Digit) Wrist ? 2.2 2.8 <3.7 28.7 >15.0 Wrist 5th Digit 2.2 14.0 64 Motor Summary Table ?Stim Site NR Onset (ms) Norm Onset (ms) O-P Amp (mV) Norm O-P Amp iAmp (mV) Amp (1st) (%) Site1 Site2 Delta-0 (ms) Dist (cm) Austin (m/s) Norm Austin (m/s) Left Median Motor (Abd Poll Brev) Wrist ? 3.8 <3.9 10.3 >4.5 12.1 100.0 Elbow Wrist 4.1 23.0 56 >45 Elbow ? 7.9 10.4 12.3 101.0 Right Median Motor (Abd Poll Brev) Wrist ? 3.7 <3.9 10.5 >4.5 12.6 100.0 Elbow Wrist 4.0 22.0 55 >45 Elbow ? 7.7 10.5 12.9 100.0 Right Peroneal Motor (Ext Dig Brev) Ankle ? 3.5 <4.0 6.3 >2.5 7.7 100.0 Ankle Ext Dig Brev 3.5 0.0 B Fib ? 11.5 6.6 8.1 104.8 B Fib Ankle 8.0 36.0 45 >40 Poplt ? 12.7 6.1 7.7 96.8 Poplt B Fib 1.2 8.0 67 >40 Left Tibial Motor (Abd Mckinley Brev) Ankle ? 3.6 <5 12.9 >2.5 18.2 100.0 Ankle Abd Mckinley Brev 3.6 0.0 Knee ? 12.0 7.8 11.0 60.5 Knee Ankle 8.4 34.0 40 >40 Right Tibial Motor (Abd Mckinley Brev) Ankle ? 3.4 <5 13.4 >2.5 18.5 100.0 Ankle Abd Mckinley Brev 3.4 0.0 Knee ? 12.7 7.6 10.7 56.7 Knee Ankle 9.3 43.0 46 >40 Left Ulnar Motor (Abd Dig Minimi) Wrist ? 2.8 <3.0 6.9 >5 8.6 100.0 B Elbow Wrist 3.8 22.0 58 >45 B Elbow ? 6.6 6.7 8.5 97.1 A Elbow B Elbow 2.0 10.0 50 >45 A Elbow ? 8.6 6.7 8.5 97.1 Right Ulnar Motor (Abd Dig Minimi) Wrist ? 2.7 <3.0 10.7 >5 12.7 100.0 B Elbow Wrist 4.0 24.0 60 >45 B Elbow ? 6.7 9.9 12.0 92.5 A Elbow B Elbow 1.9 10.0 53 >45 A Elbow ? 8.6 9.5 11.6 88.8 EMG ?Side Muscle Nerve Root Ins Act Fibs Psw Amp Dur Poly Recrt Int Pat Comment Right 1stDorInt Ulnar C8-T1 Nml Nml Nml Nml Nml 0 Nml Complete Right FlexCarRad Median C6-7 Nml Nml Nml Nml Nml 0 Nml Complete Right Biceps Musculocut C5-6 Nml Nml Nml Nml Nml 0 Nml Complete Right Triceps Radial C6-7-8 Nml Nml Nml Nml Nml 0 Nml Complete Right Deltoid Axillary C5-6 Nml Nml Nml Nml Nml 0 Nml Complete Left 1stDorInt Ulnar C8-T1 Nml Nml Nml Nml Nml 0 Nml Complete Left FlexCarRad Median C6-7 Nml Nml Nml Nml Nml 0 Nml Complete Left Biceps Musculocut C5-6 Nml Nml Nml Nml Nml 0 Nml Complete Left Triceps Radial C6-7-8 Nml Nml Nml Nml Nml 0 Nml Complete Left Deltoid Axillary C5-6 Nml Nml Nml Nml Nml 0 Nml Complete Right AbdHallucis MedPlantar S1-2 Nml Nml Nml Nml Nml 0 Nml Complete Right AntTibialis Dp Br Peron L4-5 Nml Nml Nml Nml Nml 0 Nml Complete Right PostTibialis Tibial L5, S1 Nml Nml Nml Nml Nml 0 Nml Complete Right MedGastroc Tibial S1-2 Nml Nml Nml Nml Nml 0 Nml Complete Right VastusMed Femoral L2-4 Nml Nml Nml Nml Nml 0 Nml Complete Left AbdHallucis MedPlantar S1-2 Nml Nml Nml Nml Nml 0 Nml Complete Left AntTibialis Dp Br Peron L4-5 Nml Nml Nml Nml Nml 0 Nml Complete Left PostTibialis Tibial L5, S1 Nml Nml Nml Nml Nml 0 Nml Complete Left MedGastroc Tibial S1-2 Nml Nml Nml Nml Nml 0 Nml Complete Left VastusMed Femoral L2-4 Nml Nml Nml Nml Nml 0 Nml Complete Paraspinal EMG ?Side Muscle Nerve Root Ins Act Fibs Psw Comment Right Cervical Upper Rami Nml Nml Nml Right Cervical Mid Rami Nml Nml Nml Right Cervical Lower Rami Nml Nml Nml Left Cervical Upper Rami Nml Nml Nml Left Cervical Mid Rami Nml Nml Nml Left Cervical Lower Rami Nml Nml Nml Right Lumbar Upper Rami Nml Nml Nml Right Lumbar Mid Rami Nml Nml Nml Right Lumbar Lower Rami Nml Nml Nml Left Lumbar Upper Rami Nml Nml Nml Left Lumbar Mid Rami Nml Nml Nml Left Lumbar Lower Rami Nml Nml Nml FINDINGS: All motor and sensory nerves tested showed normal latencies, amplitudes and conduction velocities. Concentric needle EMG was performed in selected muscles of the bilateral upper extremities, bilateral lower extremity, cervical paraspinals, lumbar paraspinals. Study did not reveal signs of electric abnormalities as shown in the table below. No fasciculation seen. IMPRESSION: 1. This is a normal study. 2. There is no electrodiagnostic evidence for median neuropathy, ulnar neuropathy, brachial plexopathy, or cervical radiculopathy. 3. There is no electrodiagnostic evidence for peroneal neuropathy, tibial neuropathy, lumbosacral plexopathy, lumbar radiculopathy, or peripheral neuropathy. 4. No electrodiagnostic evidence for motor neuron disorder. Thank you for your kind referral. Jerica Tai MD, PAGE Board Certified, [place] [employer] and [employer] (ABPMR) Board Certified, [place] Board of Electrodiagnostic Medicine (ABEM) CODIN 63122 x 4 MTDD
== END 2023-09-25 15:25 | disposition home or self-care (01) ==
LOC: HO.NEURO 15:24
PROVIDERS: PCP Nurse Practitioner Family; Visit Provider Nurse Practitioner Family
DX: R20.2 Paresthesia of skin (principal); M54.81 Occipital neuralgia; M54.2 Cervicalgia
CPT/HCPCS: 95886; 95913

== ENCOUNTER → 2023-09-25 15:29 | Outpatient (BNV) | payer OTHER, SELFPAY | PROVIDERS: PCP Nurse Practitioner Family; Visit Provider Physical Medicine & Rehabilitation | DX: M79.604 Pain in right leg (principal); M79.605 Pain in left leg; M79.601 Pain in right arm; M79.602 Pain in left arm | CPT/HCPCS: 95886; 95913 ==

== ENCOUNTER 2023-10-02 09:38 | Outpatient (AMB) | payer OTHER, SELFPAY ==
--- NOTE | 2023-10-02 09:41 | MHC.OFFVIS ---
Vital Signs 10/02/23 09:42 Height 6 ft 5 in Weight 241 lb BMI 28.6 BP 128/81 Blood Pressure Location Lt brachial Position Sitting Respiration 14 Pulse 71 Pulse Source Pulse Oximeter Pulse Oximetry (%) 96 Oxygen Delivery Method Room Air Intake Visit Reasons: FOLLOW UP AFTER INJECTION Allergies shellfish derived Allergy (Severe, Verified 10/02/23 09:44) Anaphylaxis Medication List - Last Reconciled 10/02/23 by Janell Salinas LPN albuterol sulfate 90 mcg/actuation 2 inhalations inhalation Q6H PRN 30 days cyclobenzaprine 10 mg PO Q8H dextroamphetamine-amphetamine 10 mg (Adderall) 10 mg PO BID 14 days dextroamphetamine-amphetamine 20 mg (Adderall) 20 mg PO DAILY 14 days [Epi E-Z Pen ] gabapentin 300 mg PO BEDTIME 30 days magnesium oxide 400 mg PO BEDTIME 30 days meloxicam 15 mg PO DAILY riboflavin (vitamin B2) 400 mg PO DAILY 30 days sumatriptan succinate 50 - 100 mg orally at onset of headache, may repeat in 2 hrs PRN; max 2 tabs per day or 4 tabs/week (may take with Ibuprofen) 30 days topiramate 25 - 50 mg (1 - 2 x 25 mg) PO BEDTIME 30 days HPI HPI FOLLOW UP AFTER INJECTION: Details: 38-year-old male who presents today to the office for follow up after injection. He was initially very sore after the injection for 2-3 days but then felt that his headache frequency subsequently decreased. He complains of severe headaches, with usual frequency of 3-5 episodes a week. He was put on Topiramate and Topamax to help with the headaches, which he thinks has made some difference in the intensity. He describes the headaches as something that is deeper in his neck with pressure like sensation. He also gets photosensitivity when he experiences the headaches. He is not able to sleep because of the severity of headaches. He sometimes feels nauseated with severe headaches episodes. He has tried Excedrin for the migraines, which helps him for a few hours. He has not tried Sumatriptan, which was prescribed in the past. He has not maintained any diary for the headache frequency. He is scheduled to see the neurologist next week for the migraine headaches. He also reports lower back pain and back muscle tightness. He mentions a few times while sitting in a chair, where he could not get up. He has tried physical therapy with minimal benefit. He reports pain with bending sideways, forward and backward. Past Procedures: 09/25/23: Bilateral occipital nerve blocks: Decreased headache frequency [facility] Medical History (Updated 10/04/23 @ 09:37 by Kj Mcfadden MD) Migraine History of traumatic brain injury DDD (degenerative disc disease), lumbar History of seizure PTSD (post-traumatic stress disorder) Arthritis of shoulder region, left, degenerative Insomnia Asthma SB (obstructive sleep apnea) Hypersomnia Osteoarthritis of right shoulder Surgical History Hx of vasectomy Hx of eye surgery History of shoulder surgery Family History Other Asthma Social History Household Members: Spouse Patient Tobacco Use Status: Current everyday Tobacco user Tobacco use type: Cigarette Cigarettes Per Day: 2 e-Cigarette/Vaping Use: Never Used Second Hand Smoke Exposure: No service: Yes Current occupational status: employed Current occupation: [employer] Current occupational exposures/hazards: Yes Cognitive needs: No Hearing needs: No Vision needs: No Review of Systems Const All systems reviewed & are unremarkable except as noted in HPI and below Physical Exam Vital Signs: Last Vital Signs Pulse 71 10/02/23 09:42 Resp 14 10/02/23 09:42 BP 128/81 10/02/23 09:42 Pulse Ox 96 10/02/23 09:42 Oxygen Delivery Method Room Air 10/02/23 09:42 BMI result Body Mass Index 28.6 General: Appears afebrile. Alert and oriented. Mood and affect appropriate. Follows and participates in conversation appropriately. Respiratory effort is unlabored. Able to transition from sit to stand unassisted. Cervical extension is very limited. He is unable to extend his neck. Attempting cervical facet loading reproduces discomfort and pain. Results Reviewed Results Reviewed: 09/06/23: XR CERVICAL SPINE XR LUMBAR SPINE FINDINGS: Straightening of the normal cervical lordosis. Mild multilevel cervical spondylosis with slight loss of disc space height at C4-C5 and C5-C6. Alignment preserved on flexion and extension views. Lumbar spine: Mild rightward curvature of the lumbar spine. Degenerative changes in the imaged lower thoracic spine. Straightening of the normal lumbar lordosis on the lateral view. Redemonstration of a superior endplate concavity at the L4 vertebral bodies characteristic of a Schmorl's node. Facet arthritis in the lower lumbar spine. Mild multilevel lumbar spondylosis with mild loss of disc space height at L3-L4, L4-L5 and L5-S1. IMPRESSION: 1. Mild multilevel cervical spondylosis. 2. Mild multilevel lumbar spondylosis. Assessment & Plan Assessment & Plan (1) Muscle spasms of neck: Code(s): M62.838 - Other muscle spasm Category: Medical (2) Migraine: Code(s): G43.909 - Migraine, unspecified, not intractable, without status migrainosus Category: Medical (3) Cervical spondylosis: Code(s): M47.812 - Spondylosis without myelopathy or radiculopathy, cervical region Category: Medical (4) Lumbar spondylosis: Code(s): M47.816 - Spondylosis without myelopathy or radiculopathy, lumbar region Category: Medical Plan Discussed multiple modalities for symptomatic control of cervical and lumbar spondylosis related symptoms including acupuncture, massage therapy, swimming and home traction devices, including cervical traction pillows and inversion table for low back pain. I also discussed peripheral nerve stimulation for cervical and lumbar medial branches to help with the spondylotic symptoms. He also has L4 superior endplate deformity likely indicating vertebral endplate changes that would be best seen on an MRI. He may be a candidate for Intracept procedure in the future, but unfortunately, he is moving to [place] in December 2023, so we may not have enough time to undertake that prior to his move. In the meanwhile, for his cervical spondylosis, we will proceed with diagnostic C3, C4, C5 medial branch blocks, 2 rounds with one week apart, followed by potential radiofrequency ablation on both sides to help with facet related symptoms and hopefully relieve some of the muscle spasms that he is getting. Discussed the risks and benefits of the procedure with the patient in detail. All questions were answered. The patient is on board with the plan. With respect to his migraines, encouraged him to follow-up with Neurology to discuss his candidacy for different preventative and abortive treatment options available today. It appears the only thing he has tried so far as topiramate. I also counseled the patient not to combine multiple Excedrin pills at the same time to help with his headaches. He has a prior history of elevated liver enzymes and this may be secondary to acetaminophen toxicity. Justification for interventional therapy: ? Patient with average pain > 6/10 ? Patient has exhausted conservative therapy ? Patient unable to tolerate physical therapy due to pain More than 40 minutes were spent in counseling and documentation of this visit. Scribed for Dr. Mcfadden by Nano Blank, medical practice manager, on 10/02/2023. I, Dr. Mcfadden, have personally reviewed and agree with the information entered by the scribe. Coding Level of Care Code Est Pt Level 5 (82672) Diagnoses Muscle spasms of neck M62.838 Migraine G43.909 Cervical spondylosis M47.812 Lumbar spondylosis M47.816
[2023-10-02 09:42] VITALS: BP 128/81; PULSE 71; RESP 14; O2SAT 96; BMI 28.6
== END 2023-10-02 10:41 | disposition home or self-care (01) ==
PROVIDERS: PCP Nurse Practitioner Family; Visit Provider Internal Medicine
DX: M62.838 Other muscle spasm (principal); G43.909 Migraine, unspecified, not intractable, without status migrainosus; M47.812 Spondylosis without myelopathy or radiculopathy, cervical region; M47.816 Spondylosis without myelopathy or radiculopathy, lumbar region
CPT/HCPCS: 99215

== ENCOUNTER → 2023-10-02 09:38 | Outpatient (BNVA) | payer OTHER, SELFPAY | PROVIDERS: PCP Nurse Practitioner Family; Visit Provider Internal Medicine | DX: M62.838 Other muscle spasm (principal); G43.909 Migraine, unspecified, not intractable, without status migrainosus; R11.0 Nausea; M47.812 Spondylosis without myelopathy or radiculopathy, cervical region; M47.816 Spondylosis without myelopathy or radiculopathy, lumbar region | CPT/HCPCS: 99212 ==

== ENCOUNTER 2023-10-14 07:51 | Outpatient (REF) | payer OTHER, SELFPAY ==
--- NOTE | ~2023-10-14 | MR_ITS ---
EXAMINATION: MR BRAIN WITHOUT AND WITH CONTRAST CLINICAL INFORMATION: Posterior cervical spine pain radiating into the back of the head, right-sided facial pain COMPARISON: None TECHNIQUE: Multiplanar multisequence MR imaging of the brain was obtained without and following the administration of 10 mL Gadavist intravenous contrast. FINDINGS: There is no acute infarct on diffusion-weighted imaging. There is no intracranial hemorrhage on iron-sensitive imaging. No extra-axial collection or mass effect/herniation. Normal parenchymal signal characteristics. No hydrocephalus. The ventricles are normal in morphology and size. No abnormal parenchymal or extra-axial enhancement. The major flow voids at the skull base are preserved. The midline structures are normal. The cerebellar tonsils are normally positioned. The craniocervical junction is normal. Marrow signal is within normal limits. The visualized soft tissues are without significant abnormality. No signal abnormality within the paranasal sinuses or within the mastoid air cells. MR/MR head/brain wo/w con IMPRESSION: Unremarkable contrast enhanced MRI of the brain.
[2023-10-14] MEDS: gadobutroL 10 ML VIAL IVPUSH (10:18)
--- NOTE | 2023-10-14 10:26 | HE.PHANOTE ---
ALLERGY TO CONTRAST MEDIA Reached out to provider about allergy to contrast media. Allergy was discovered today, was given benadryl and methylpred. Order verified to cover charge.
== END 2023-10-14 07:52 | disposition home or self-care (01) ==
LOC: HO.MRI 07:51
PROVIDERS: PCP Nurse Practitioner Family; Visit Provider Nurse Practitioner Family
DX: G51.4 Facial myokymia (principal); R20.2 Paresthesia of skin; R51.9 Headache, unspecified; Z87.898 Personal history of other specified conditions
CPT/HCPCS: 70553; A9585

== ENCOUNTER 2023-10-14 10:04 | Emergency (ER) | payer OTHER, SELFPAY ==
[2023-10-14 10:12] VITALS: BP 136/87; PULSE 70; RESP 18; O2SAT 98; BMI 28.5
--- NOTE | 2023-10-14 10:25 | ED_ITS ---
HPI - Allergic Reaction General Chief complaint: Allergic Reaction Stated complaint: allergic reaction Time Seen by Provider: 10/14/23 10:09 Source: patient Mode of arrival: ambulatory Limitations: no limitations History of Present Illness HPI narrative: This is a 38 years old the male brought in from a MRI because after he received the gadolinium for an outpatient MRI developed hives, he said his throat was closing. He was given IV Benadryl 25 mg by the MRI team. At this spine he if feeling a little better MD complaint: allergic reaction and hives Onset (ago): hour(s) (/) Exposure: other (Gadolinium) Symptoms: rash and itching Severity: mild Treatment prior to arrival: benadryl Related Data Home Medications ?Medication ?Instructions ?Recorded ?Confirmed Epi E-Z Pen 01/23/22 10/02/23 Previous Rx's ?Medication ?Instructions ?Recorded albuterol sulfate 90 mcg/actuation 2 inh inhalation Q6H PRN shortness 01/16/21 aerosol inhaler of breath or wheezing 30 days #18 grams cyclobenzaprine 10 mg tablet 10 mg PO Q8H #30 tabs 04/10/23 meloxicam 15 mg tablet 15 mg PO DAILY #14 tabs 04/10/23 magnesium oxide 400 mg (241.3 mg 400 mg PO BEDTIME 30 days #30 tabs 08/15/23 magnesium) tablet riboflavin (vitamin B2) 400 mg 400 mg PO DAILY 30 days #30 tabs 08/15/23 tablet sumatriptan succinate 100 mg tablet 50 - 100 mg (0.5 - 1 x 100 mg) PO 08/15/23 .COMPLEX PRN migraine headache 30 days #12 tabs topiramate 25 mg tablet 25 - 50 mg (1 - 2 x 25 mg) PO 08/15/23 BEDTIME 30 days #60 tabs dextroamphetamine-amphetamine 10 10 mg PO BID 14 days #28 tabs 08/29/23 mg tablet (Adderall) dextroamphetamine-amphetamine 20 20 mg PO DAILY 14 days #14 tabs 08/29/23 mg tablet (Adderall) gabapentin 300 mg capsule 300 mg PO BEDTIME pain 30 days #30 09/06/23 caps Allergies Allergy/AdvReac Type Severity Reaction Status Date / Time shellfish derived Allergy Severe Anaphylaxis Verified 10/02/23 09:44 Iodinated Contrast Media Allergy Anaphylaxis Verified 10/14/23 10:13 [Contrast Dye] Review of Systems Constitutional: Constitutional: Reports no additional constitutional complaints ENT: Reports system reviewed and no additional complaints, except as documented Cardiovascular: Cardiovascular: Reports no additional cardiovascular complaints PMFSH Past Medical History Attestation statement: The following information was validated with the patient. Medical History Migraine History of traumatic brain injury DDD (degenerative disc disease), lumbar History of seizure PTSD (post-traumatic stress disorder) Arthritis of shoulder region, left, degenerative Insomnia Asthma SB (obstructive sleep apnea) Hypersomnia Osteoarthritis of right shoulder Surgical History Hx of vasectomy Hx of eye surgery History of shoulder surgery Family History Family History Other Asthma Social History Social History Household Members: Spouse Patient Tobacco Use Status: Current everyday Tobacco user Tobacco use type: Cigarette Cigarettes Per Day: 2 e-Cigarette/Vaping Use: Never Used Second Hand Smoke Exposure: No Advance Directives: No Advance Directives Information Provided: No service: Yes Current occupational status: employed Current occupation: [employer] Current occupational exposures/hazards: Yes Cognitive needs: No Hearing needs: No Vision needs: No Physical Exam ED Vital Signs: Vital Signs - 24 hr 10/14/23 10:12 10/14/23 11:36 Temperature 0 F L Pulse Rate 70 84 Respiratory Rate 18 16 Blood Pressure 136/87 152/79 H Pulse Oximetry 98 98 Oxygen Delivery Method Room Air Room Air BMI result Body Mass Index 28.5 Const General: cooperative Nutritional Appearance: average body habitus Orientation/consciousness: patient oriented x3 Limitations: no limitations HENMT Head: Yes normal to inspection General nose exam: Normal external nose present Face and sinus: Yes normal facial exam Mouth: Normal oral and palatal mucosa present Throat: Yes posterior oropharynx normal Neck Neck: Yes normal visual inspection Chest Chest palpation & inspection: normal inspection of the chest Resp Effort & Inspection: normal respiratory effort Auscultation: clear to auscultation bilaterally Cardio Jugular venous distension: no JVD Rate: regular rate Rhythm: regular rhythm GI Inspection: Yes normal to inspection Palpation (GI): Soft to palpation, not firm and nontender Auscultation: normal bowel sounds Skin Other: Hives chest and back General skin exam: elasticity normal Neuro General: patient oriented x3 Course Reevaluation(s) Reevaluation #1: Doing better asymptomatic Time: 11:16 Medications Administered Discontinued Medications Generic Name Dose Route Start Last Admin Trade Name Freq PRN Reason Stop Dose Admin Dexamethasone Sodium Phosphate 10 mg 10/14/23 10:25 10/14/23 10:28 Dexamethasone Sod Phosphate 10 Mg/Ml Vial IVPUSH 10/14/23 10:26 10 mg ONCE ONE Administration Medical Decision Making Medical Decision Making MDM Narrative: Patient presented with allergic reaction after gadolinium injection he already received Benadryl we will give him some IV steroid at this time I do not think he needs epinephrine his lungs are clear is no wheezing Differential Diagnosis Differential Diagnoses: The differential diagnosis associated with the presentation includes Allergic reaction versus urticaria Independent Historian MRI bonita Discharge Plan Discharge Clinical Impression: Allergic reaction Qualifiers: Encounter type: initial encounter Qualified Code(s): T78.40XA - Allergy, unspecified, initial encounter Patient Disposition: Home, Self-Care Instructions: General Allergic Reaction (ED) Additional Instructions: Follow-up with your primary care physician that you could take Benadryl [id number] every 6 hour as needed return to the emergency room if you are worse Prescriptions: No Action dextroamphetamine-amphetamine [Adderall] 20 mg tablet 20 mg PO DAILY 14 Days Qty: 14 0RF Rx Instructions: Partial Fill upon patient request. dextroamphetamine-amphetamine [Adderall] 10 mg tablet 10 mg PO BID 14 Days Qty: 28 0RF Rx Instructions: administer doses at least 4-6 hours apart; Partial Fill upon patient request. Epi E-Z Pen meloxicam 15 mg tablet 15 mg PO DAILY Qty: 14 0RF cyclobenzaprine 10 mg tablet 10 mg PO Q8H Qty: 30 0RF albuterol sulfate 90 mcg/actuation HFA aerosol inhaler 2 inh inhalation Q6H PRN (Reason: shortness of breath or wheezing) 30 Days Qty: 18 12RF gabapentin 300 mg capsule 300 mg PO BEDTIME 30 Days Qty: 30 0RF sumatriptan succinate 100 mg tablet 50 - 100 mg PO .COMPLEX PRN (Reason: migraine headache) 30 Days Qty: 12 6RF Rx Instructions: 50 - 100 mg orally at onset of headache, may repeat in 2 hrs PRN; max 2 tabs per day or 4 tabs/week (may take with Ibuprofen) magnesium oxide 400 mg (241.3 mg magnesium) tablet 400 mg PO BEDTIME 30 Days Qty: 30 6RF Rx Instructions: may hold for loose stools topiramate 25 mg tablet 25 - 50 mg PO BEDTIME 30 Days Qty: 60 3RF riboflavin (vitamin B2) 400 mg tablet 400 mg PO DAILY 30 Days Qty: 30 6RF Interventions: ED Discharge Assessment Last Done: 10/14/23 11:36 Discharge Date/Time: 10/14/23 11:36 Print Language: Kazakh
[2023-10-14] MEDS: dexAMETHasone sod phosphate 10 MG/ML VIAL IVPUSH (10:28)
--- NOTE | 2023-10-14 10:40 | PC.NURSE ---
Patient reports during MRi when contrast dye was injected felt his throat starting to close and became nauseous and vomited. Upon arrival to ED patient reports feels better just has some remaining hoarseness. medicated per aug, vss
[2023-10-14 11:36] VITALS: BP 152/79; PULSE 84; RESP 16; TEMP -17.7; TEMP 0; O2SAT 98
== END 2023-10-14 11:36 | disposition home or self-care (01) ==
PROVIDERS: Emergency Provider Emergency Medicine
DX: L50.0 Allergic urticaria (principal); T50.8X5A Adverse effect of diagnostic agents, initial encounter; Y92.239 Unspecified place in hospital as the place of occurrence of the external cause; F17.210 Nicotine dependence, cigarettes, uncomplicated; Z79.899 Other long term (current) drug therapy
CPT/HCPCS: 99283; 99284; J1100

== ENCOUNTER 2023-10-29 16:01 | Outpatient (AMB) | payer OTHER, SELFPAY ==
[2023-10-29 16:11] VITALS: BP 128/74; PULSE 74; TEMP 36.6; O2SAT 98
--- NOTE | 2023-10-29 16:11 | AM.OFFWIN_ITS ---
Intake Vital Signs 10/29/23 16:11 Height 6 ft 5 in BP 128/74 Blood Pressure Location Rt brachial Position Sitting Pulse 74 Pulse Source Pulse Oximeter Temp 97.8 F Temp Source Oral Pulse Oximetry (%) 98 Oxygen Delivery Method Room Air Intake Visit Reasons: EP Asthma, Food allergy Intake Note: pt is here for refill on epipen and inhalers Patient Tobacco Use Status: Current everyday Tobacco user Allergies gadobutrol [From Gadavist] Allergy (Severe, Verified 10/29/23 16:30) Anaphylaxis shellfish derived Allergy (Severe, Verified 10/29/23 16:30) Anaphylaxis Iodinated Contrast Media [Contrast Dye] Allergy (Verified 10/29/23 16:30) Anaphylaxis Medication List - Last Reconciled 10/29/23 by Thien Morgan MD albuterol sulfate 90 mcg/actuation 2 inhalations inhalation Q6H PRN 30 days albuterol sulfate 2.5 mg (3 mL) inhalation Q6H cyclobenzaprine 10 mg PO Q8H dextroamphetamine-amphetamine 10 mg (Adderall) 10 mg PO BID 14 days dextroamphetamine-amphetamine 20 mg (Adderall) 20 mg PO DAILY 14 days [Epi E-Z Pen As directed] gabapentin 300 mg PO BEDTIME 30 days magnesium oxide 400 mg PO BEDTIME 30 days riboflavin (vitamin B2) 400 mg PO DAILY 30 days sumatriptan succinate 50 - 100 mg orally at onset of headache, may repeat in 2 hrs PRN; max 2 tabs per day or 4 tabs/week (may take with Ibuprofen) 30 days topiramate 25 - 50 mg (1 - 2 x 25 mg) PO BEDTIME 30 days Do you need a note to return to daycare/school/sports/work: No HPI EP Asthma, Food allergy HPI Details 38 yr old male presents to the office fo r a sick visit. Missed his regular MD appt and needs his meds refilled. He needs Epi pen and albuterol inhalers. [facility] Medical History Migraine History of traumatic brain injury DDD (degenerative disc disease), lumbar History of seizure PTSD (post-traumatic stress disorder) Arthritis of shoulder region, left, degenerative Insomnia Asthma SB (obstructive sleep apnea) Hypersomnia Osteoarthritis of right shoulder Surgical History Hx of vasectomy Hx of eye surgery History of shoulder surgery Family History Other Asthma Social History Household Members: Spouse Patient Tobacco Use Status: Current everyday Tobacco user Tobacco use type: Cigarette Cigarettes Per Day: 2 e-Cigarette/Vaping Use: Never Used Second Hand Smoke Exposure: No service: Yes Current occupational status: employed Current occupation: [employer] Current occupational exposures/hazards: Yes Cognitive needs: No Hearing needs: No Vision needs: No Physical Exam Vital Signs: Last Vital Signs Temp 97.8 F 10/29/23 16:11 Pulse 74 10/29/23 16:11 BP 128/74 10/29/23 16:11 Pulse Ox 98 10/29/23 16:11 Oxygen Delivery Method Room Air 10/29/23 16:11 Const General: cooperative and healthy appearing Nutritional Appearance: well nourished Orientation/consciousness: patient oriented x3 Limitations: no limitations HEENT Head: Yes normal to inspection Eyes General: appearance normal, both eyes and all related structures Neck Neck: Yes normal visual inspection Chest Chest palpation & inspection: normal palpation of entire chest wall Resp Effort & Inspection: normal respiratory effort Neuro General: patient oriented x3 Assessment & Plan Assessment & Plan (1) Allergies: Code(s): T78.40XA - Allergy, unspecified, initial encounter Plan: Medications refilled. If sx not better to follow up here. Medications: New albuterol sulfate 2.5 mg (3 mL) inhalation Q6H 75 mL 0RF Changed From [Epi E-Z Pen] To [Epi E-Z Pen] As directed 2 ea 0RF Refilled albuterol sulfate 90 mcg/actuation 2 inhalations inhalation Q6H PRN 18 grams 12RF shortness of breath or wheezing 30 days J44.9 - Chronic obstructive pulmonary disease, unspecified Coding Level of Care Code Est Pt Level 3 (29935) Diagnoses Allergies T78.40XA
== END 2023-10-29 16:53 | disposition home or self-care (01) ==
PROVIDERS: Visit Provider Internal Medicine
DX: T78.40XA Allergy, unspecified, initial encounter (principal)
CPT/HCPCS: 99213